=== PATIENT | female | born 1960 | race Caucasian/White ===

== ENCOUNTER 2019-05-25 19:51 | Emergency (ER) | payer OTHER ==
[~2019-05-25] VITALS: Ht 152.4 cm; Wt 48.8 kg
[2019-05-25 22:49] VITALS: BP 135/72
== END 2019-05-25 22:50 | disposition home or self-care (01) ==
LOC: ER 20:28
DX: R04.0 Epistaxis (principal); E78.00 Pure hypercholesterolemia, unspecified; K76.9 Liver disease, unspecified; Z98.890 Other specified postprocedural states
CPT/HCPCS: 99281